=== PATIENT | female | born 1950 | race Caucasian/White ===

== ENCOUNTER 2020-05-13 11:49 | Inpatient (IN) ==
[2020-05-13] MEDS ORDERED: BUDESONIDE 0.5 MG/2 ML NEB RESP TX STA (12:56)
[2020-05-13] MEDS ORDERED: DEXAMETHASONE 4 MG/1 ML VIAL IV STA (12:57)
[2020-05-13 13:31] LABS: Basophils % 0.5 % (0.0-0.8); Eosinophils # 0.1 10*3/uL (0.0-0.87); Hematocrit 41.4 VOL% (35.7-47.0); Hemoglobin 13.8 GM/DL (12.0-16.0); Immature Granulocytes % 0.7 %; Immature Granulocytes Absolute 0.06 #; Lymphocytes # 1.7 10*3/uL (1.4-4.0); Mean Corpuscular HGB Conc 33.3 GM/DL (32-36); Mean Corpuscular Volume 86.3 FL (87-102); Mean Platelet Volume 10.7 FL (9.6-12.0); Monocytes % 9.5 % (1.7-12.7); Neutrophils % 67.3 % (38.7-73.9); Platelet Count 282 T/CUMM (130-400); White Blood Count 8.2 T/CUMM (4-12)
[2020-05-13 14:25] LABS: Albumin 2.6 G/DL (3.4-5.0); Bilirubin,Total 0.6 MG/DL (0.2-1.0); Calcium 8.9 MG/DL (8.5-10.1); Osmolality,Calculated 279.4 MOS/KG (273-304); Total Protein 7.7 G/DL (6.4-8.3)
[2020-05-13] MEDS ORDERED: LACTULOSE 20 GM/30 ML UDCUP PO PRN (15:47)
[2020-05-13] MEDS ORDERED: AZITHROMYCIN INJ 500 MG in SODIUM CHLORIDE 0.9% 250 ML IV ONE (15:47)
[2020-05-13] MEDS ORDERED: ACETAMINOPHEN 325 MG TABLET PO PRN (15:47)
[2020-05-13] MEDS ORDERED: GLUCAGON 1 MG VIAL IM PRN (15:47)
[2020-05-13] MEDS ORDERED: DEXTROSE 50% 25 GM/50 ML VIAL IV PRN ×2 (15:47)
[2020-05-13] MEDS ORDERED: hydrALAZINE 20 MG/1 ML VIAL IV PRN (15:47)
[2020-05-13] MEDS ORDERED: ONDANSETRON 4 MG/2 ML VIAL IV PRN (15:47)
[2020-05-13 16:12] LABS: Eosinophils 1 % (0-10); Lymphocytes 17 % (20-55); Segmented Neutrophils 74 % (50-85); Total Cells Counted 100
[2020-05-13 16:13] LABS: Hypochromasia 1+; Platelet Estimate Normal
[2020-05-13] MEDS: SODIUM CHLORIDE 0.9% 1,000 ML IV SCH (17:49)
[2020-05-13] MEDS: INSULIN REGULAR 100 UNIT/ML SUBCUT SCH ×2 (17:58→21:24)
[2020-05-13] MEDS: FAMOTIDINE 20 MG TABLET PO SCH (21:23)
[2020-05-13] MEDS: MELATONIN 3 MG TABLET PO PRN (21:23)
[2020-05-13] MEDS: ASCORBIC ACID 500 MG TABLET PO SCH (21:23)
[2020-05-13] MEDS: ENOXAPARIN 40 MG/0.4 ML SYRINGE SUBCUT SCH (21:24)
[2020-05-14 05:54] LABS: Basophils % 0.4 % (0.0-0.8); Hematocrit 40.3 VOL% (35.7-47.0); Hemoglobin 12.9 GM/DL (12.0-16.0); Immature Granulocytes Absolute 0.07 #; Lymphocytes # 1.5 10*3/uL (1.4-4.0); Lymphocytes % 22.6 % (21.3-54.2); Mean Corpuscular Volume 89.8 FL (87-102); Mean Platelet Volume 9.9 FL (9.6-12.0); Monocytes % 7.8 % (1.7-12.7); Neutrophils % 68.2 % (38.7-73.9); Platelet Count 316 T/CUMM (130-400); Red Blood Count 4.49 MC/CUMM (3.8-5.5); White Blood Count 6.7 T/CUMM (4-12)
[2020-05-14 06:23] LABS: Albumin 2.3 G/DL (3.4-5.0); Bilirubin,Total 0.8 MG/DL (0.2-1.0); Calcium 9.1 MG/DL (8.5-10.1); Ferritin 422.4 ng/ml (8-252); Osmolality,Calculated 292.8 MOS/KG (273-304); Thyroid Stimulating Hormone 0.141 uIU/ml (0.358-3.74); Total Protein 7.5 G/DL (6.4-8.3)
[2020-05-14 07:12] LABS: Eosinophils 1 % (0-10); Hypochromasia 1+; Lymphocytes 19 % (20-55); Segmented Neutrophils 72 % (50-85); Total Cells Counted 100
[2020-05-14 07:13] LABS: Microcytosis 1+; Platelet Estimate Normal
[2020-05-14] MEDS: DEXAMETHASONE 4 MG/1 ML VIAL IV SCH (08:01)
[2020-05-14] MEDS: FAMOTIDINE 20 MG TABLET PO SCH ×2 (08:02→21:06)
[2020-05-14] MEDS: ASCORBIC ACID 500 MG TABLET PO SCH ×2 (08:02→21:06)
[2020-05-14] MEDS: ENOXAPARIN 40 MG/0.4 ML SYRINGE SUBCUT SCH ×2 (08:02→21:05)
[2020-05-14] MEDS: AZITHROMYCIN 250 MG TABLET PO SCH (08:03)
[2020-05-14] MEDS: CHOLECALCIFEROL 1,000 UNIT TABLET PO SCH (08:03)
[2020-05-14] MEDS: ZINC GLUCONATE 50 MG TABLET PO SCH (08:03)
[2020-05-14 08:35] LABS: Sedimentation Rate-Westergren 47 MM/HR (0-30)
[2020-05-14] MEDS: SODIUM CHLORIDE 0.9% 1,000 ML IV SCH (09:08)
[2020-05-14] MEDS: INSULIN REGULAR 100 UNIT/ML SUBCUT SCH ×4 (09:14→21:05)
[2020-05-14] MEDS: ASPIRIN EC 81 MG TABLET PO SCH (15:04)
[2020-05-14] MEDS: LOSARTAN 50 MG TABLET PO SCH (15:05)
[2020-05-14] MEDS: DOCUSATE SODIUM 100 MG CAPSULE PO PRN (21:07)
[2020-05-14] MEDS: MELATONIN 3 MG TABLET PO PRN (21:07)
[2020-05-15 05:43] LABS: Basophils % 0.2 % (0.0-0.8); Hematocrit 40.8 VOL% (35.7-47.0); Hemoglobin 13.3 GM/DL (12.0-16.0); Immature Granulocytes Absolute 0.13 #; Lymphocytes # 2.1 10*3/uL (1.4-4.0); Lymphocytes % 16.2 % (21.3-54.2); Mean Corpuscular HGB Conc 32.6 GM/DL (32-36); Mean Corpuscular Volume 87.4 FL (87-102); Mean Platelet Volume 10.6 FL (9.6-12.0); Neutrophils % 77.6 % (38.7-73.9); Platelet Count 396 T/CUMM (130-400); Red Blood Count 4.67 MC/CUMM (3.8-5.5); White Blood Count 12.7 T/CUMM (4-12)
[2020-05-15 06:04] LABS: Albumin 2.5 G/DL (3.4-5.0); Bilirubin,Total 0.5 MG/DL (0.2-1.0); Calcium 9.2 MG/DL (8.5-10.1); Ferritin 468.7 ng/ml (8-252); Osmolality,Calculated 286.1 MOS/KG (273-304); Total Protein 7.9 G/DL (6.4-8.3)
[2020-05-15 06:20] LABS: Hypochromasia 1+; Lymphocytes 12 % (20-55); Microcytosis 1+; Platelet Estimate Adequate; Segmented Neutrophils 86 % (50-85); Total Cells Counted 100
[2020-05-15 07:25] LABS: Sedimentation Rate-Westergren 76 MM/HR (0-30)
[2020-05-15] MEDS: INSULIN REGULAR 100 UNIT/ML SUBCUT SCH ×4 (08:00→20:41)
[2020-05-15] MEDS: GLIMEPIRIDE 4 MG TABLET PO SCH (08:01)
[2020-05-15] MEDS: DEXAMETHASONE 4 MG/1 ML VIAL IV SCH (08:01)
[2020-05-15] MEDS: LOSARTAN 50 MG TABLET PO SCH (08:01)
[2020-05-15] MEDS: ASPIRIN EC 81 MG TABLET PO SCH (08:01)
[2020-05-15] MEDS: ENOXAPARIN 40 MG/0.4 ML SYRINGE SUBCUT SCH ×2 (08:02→20:42)
[2020-05-15] MEDS: AZITHROMYCIN 250 MG TABLET PO SCH (08:02)
[2020-05-15] MEDS: ASCORBIC ACID 500 MG TABLET PO SCH ×2 (08:02→20:40)
[2020-05-15] MEDS: FAMOTIDINE 20 MG TABLET PO SCH ×2 (08:02→20:40)
[2020-05-15] MEDS: ZINC GLUCONATE 50 MG TABLET PO SCH (08:02)
[2020-05-15] MEDS: CHOLECALCIFEROL 1,000 UNIT TABLET PO SCH (08:02)
[2020-05-15] MEDS: MELATONIN 3 MG TABLET PO PRN (20:41)
[2020-05-15] MEDS: DOCUSATE SODIUM 100 MG CAPSULE PO PRN (20:41)
[2020-05-16 05:04] LABS: Basophils % 0.2 % (0.0-0.8); Eosinophils % 0.1 % (0.00-10.9); Hematocrit 39.2 VOL% (35.7-47.0); Hemoglobin 12.8 GM/DL (12.0-16.0); Immature Granulocytes % 1.3 %; Immature Granulocytes Absolute 0.14 #; Lymphocytes # 2.3 10*3/uL (1.4-4.0); Lymphocytes % 22.1 % (21.3-54.2); Mean Corpuscular HGB Conc 32.7 GM/DL (32-36); Mean Corpuscular Volume 86.5 FL (87-102); Mean Platelet Volume 9.8 FL (9.6-12.0); Monocytes % 7.4 % (1.7-12.7); Neutrophils % 68.9 % (38.7-73.9); Platelet Count 411 T/CUMM (130-400); Red Blood Count 4.53 MC/CUMM (3.8-5.5); Red Cell Distribution Width 12.9 % (9.3-17.3); White Blood Count 10.5 T/CUMM (4-12)
[2020-05-16 05:29] LABS: Albumin 2.3 G/DL (3.4-5.0); Bilirubin,Total 0.8 MG/DL (0.2-1.0); Calcium 8.6 MG/DL (8.5-10.1); Osmolality,Calculated 287.7 MOS/KG (273-304); Total Protein 7.1 G/DL (6.4-8.3)
[2020-05-16] MEDS: INSULIN REGULAR 100 UNIT/ML SUBCUT SCH ×2 (08:52→11:21)
[2020-05-16] MEDS: AZITHROMYCIN 250 MG TABLET PO SCH (08:52)
[2020-05-16] MEDS: ZINC GLUCONATE 50 MG TABLET PO SCH (08:52)
[2020-05-16] MEDS: CHOLECALCIFEROL 1,000 UNIT TABLET PO SCH (08:52)
[2020-05-16] MEDS: ASCORBIC ACID 500 MG TABLET PO SCH (08:52)
[2020-05-16] MEDS: GLIMEPIRIDE 4 MG TABLET PO SCH (08:52)
[2020-05-16] MEDS: LOSARTAN 50 MG TABLET PO SCH (08:53)
[2020-05-16] MEDS: DEXAMETHASONE 4 MG/1 ML VIAL IV SCH (08:53)
[2020-05-16] MEDS: ASPIRIN EC 81 MG TABLET PO SCH (08:53)
[2020-05-16] MEDS: ENOXAPARIN 40 MG/0.4 ML SYRINGE SUBCUT SCH (08:53)
[2020-05-16] MEDS: FAMOTIDINE 20 MG TABLET PO SCH (08:53)
[2020-05-16 11:13] VITALS: BP 122/64
== END 2020-05-16 15:31 | disposition home health service (06) | DRG 177 ==
LOC: N.ED 11:49 → N.EDINP 15:35 → SUATTDRO 15:35 → N.2E 17:19
PROVIDERS: ADMIT Internal Medicine; ATTEND Internal Medicine